=== PATIENT | male | born 1935 | race Caucasian/White ===

== ENCOUNTER 2019-10-05 19:01 | Inpatient (IN) ==
[2019-10-05] MEDS ORDERED: ACETAMINOPHEN 1,000 MG/100 ML VIAL IV STA (19:53)
--- NOTE | 2019-10-05 20:06 | Emergency Department Note ---
Impression & Plan Patellar fracture, Fall, Left knee pain ED Provider Note NAME: RJ MEEKS AGE: 84 SEX: M : 1935 ARRIVES VIA: Walk-In INFORMANT: [Patient][daughter] ED PROVIDER(S): [Joe Wang MD] CHIEF COMPLAINT: Left knee pain HISTORY OF PRESENT ILLNESS: The patient is an 84-year-old male who lives alone. He was walking some dogs when they ran and pulled him down. His left knee twisted. The patient can bear no weight on the left knee and states it appears deformed. He thinks his kneecap was out of position at one point but he put it back. There is no real discomfort in the ankle or the foot on the left but he states that these areas were twisted initially. As long as the patient is still, the knee is not that painful, if you palpate the knee or he tries to move the knee, the pain becomes more severe. There is no left hip pain. He denies loss of conscious, he denies head injury, neck injury, upper extremity injury, back injury, chest or abdomina l injury. He is not on any blood thinners. The patient has been in baseline health, he has had no cough, congestion or coronavirus exposures. He was feeling fairly well today until this fall occurr ed. He states that he fell about 3-1/2 or so hours ago. REVIEW OF SYSTEMS: See HPI for pertinent positives and negatives. A total of ten systems were reviewed and were otherwise negative. PMHx/PSHx: See Below SOCIAL HISTORY: See Below. PHYSICAL EXAM: GENERAL: Patient is in no acute distress. HEENT: No acute trauma, normocephalic atraumatic, mucous membranes moist, no nasal congestion, no scleral icterus. NECK: No stridor, no adenopathy, no meningismus, trachea is midline. LUNGS: Clear to auscultation bilaterally, no wheeze, no rhonchi, breath sounds equal. HEART: Without murmurs gallops or rubs, regular rate and rhythm. ABDOMEN: Soft, nontender, bowel sounds positive, no hernias, no peritonitis. EXTREMITIES: Patient has obvious swelling to the left knee. There is no ef fusion present. The patella is high riding and there appears to be a patellar tendon rupture. This entire left knee is painful to palpate. The patient cannot lift his left leg off the bed. There is some mild edema to the left lower extremity but no gross deformity at the ankle or foot. He does have a little bit of discomfort with movement of the left ankle. There is no evidence for neurovascular compromise in the left lower extremity. No evidence for upper extremity deformity. No pain to move the joints of the upper extremities. NEUROLOGIC: Oriented x 3, no acute motor or sensory deficits, no focal weakness. SKIN: No rash, no jaundice, no diaphoresis. DIFFERENTIAL DIAGNOSIS: Muscular strain, fracture, dislocation, patellar tendon rupture, quadriceps rupture, DVT, joint effusion, infection, soft tissue injury, vascular compromise, as well as other pathologies. EMERGENCY DEPARTMENT COURSE/PROCEDURES: MEDICAL DECISION MAKING: There is no leukocytosis or concerning anemia. There is a normal platelet count. No coagulopathy. No significant electrolyte abnormality or kidney failure. No evidence for hepatitis. Left tib-fib, left ankle, left foot and left knee films were done. The patient has a distracted left patellar fracture. I saw no other bony injuries. On my exam, there was no evidence for left lower extremity neurovascular compromise. There was no gross deformity to the left lower extremity. I could not find evidence for significant injury elsewhere from the fall. The patient did not really want anything too strong for pain. I did give some IV Tylenol to prevent any worsening discomfort. He was placed in a left knee immobilizer. Ice was applied I did speak with orthopedics. The patient will be hospitalized and likely have surgery tomorrow. I talked with the on-call hospitalist. Case management has been involved. The patient is aware of the findings. Past Med/Surg History Medical History No significant past medical history Social History Preferred Language: Occitan Communication Ability: Effective Beliefs That Will Affect Care: None Current Living Situation: Alone Other Information That Helps Us Care for You: No Feels Safe at Home: Yes Safety Concerns: Feels Safe At This Time Smoking Status: Former smoker Tobacco Type: cigars ; Cigarettes Per Day: 4 ; Smoking End Date: 9 years ago ; Hx Alcohol Use: No Hx Substance Use: No Allergies Allergies Allergy/AdvReac Type Severity Reaction Status Date / Time No Known Allergies Allergy Unverified 10/05/19 20:41 Home Meds Home Medications Medication Instructions Recorded Confirmed No Known Home Medications 10/05/19 10/05/19 Results & Data (ED) Vital Signs Vital Signs - 24 hr 10/05/19 19:03 10/05/19 20:30 Temperature 36.5 C Temperature Source Oral Pulse Rate 83 Pulse Rate [Finger] 75 Respiratory Rate 16 18 Respiratory Effort / Characteristics Non-Labored Spontaneous Non-Labored Spontaneous Respiratory Depth Normal Normal Respiratory Pattern Regular Regular Blood Pressure 175/71 H Blood Pressure [Left Arm] 168/80 H Blood Pressure Mean 105 Blood Pressure Mean [Left Arm] 109 Blood Pressure Position Sitting Blood Pressure Position [Left Arm] Lying Pulse Oximetry 99 98 Oxygen Delivery Method Room Air Room Air Sepsis Recent Fever Within 48 Hours No Sepsis New/Unexplained Change in Mental Status No Sepsis Action Taken by Nursing No Action Required Home Medications Current Medication List: was personally reviewed by me Laboratory Data Attestation: I reviewed the patient's lab results. Result diagrams: 10/05/19 20:05 10/05/19 20:05 Lab Results 10/05/19 10/05/19 10/05/19 Range/Units 20:05 20:05 20:05 WBC 8.60 (4.8-10.8) K/uL RBC 4.87 (4.7-6.1) M/uL Hgb 14.4 (14.0-18.0) g/dL Hct 42.9 (42-52) % MCV 88.1 (80-100) fL MCH 29.6 (25-34) pg MCHC 33.6 (32-36) g/dL RDW Std Deviation 43.9 (36.4-46.3) fL RDW Coeff of Sherry 13.7 (11.5-14.5) % Plt Count 295 (130-400) K/uL MPV 9.0 (7.4-10.4) fL PT 10.3 (9.0-12.0) Seconds INR 1.0 (0.9-1.1) APTT 23.7 (21.0-31.0) Seconds PTT Ratio 0.8 Sodium 137 (136-145) mmol/L Potassium 3.9 (3.5-5.1) mmol/L Chloride 104 (98-107) mmol/L Carbon Dioxide 28 (21-32) mmol/L Anion Gap 6.0 (3-11) BUN 18 (7-18) mg/dl Creatinine 1.17 (0.6-1.4) mg/dl Est Cr Clr Drug Dosing Not Reportable Est GFR ( Amer) 65.5 Est GFR (Non-Af Amer) 56.5 BUN/Creatinine Ratio 15.3 (10-20) Glucose 97 (70-99) mg/dl Calcium 9.3 (8.5-10.1) mg/dl Total Bilirubin 0.5 (0.2-1) mg/dl AST 27 (15-37) U/L ALT 29 (12-78) U/L Alkaline Phosphatase 117 (45-117) U/L Total Protein 7.4 (6.4-8.2) gm/dl Albumin 3.8 (3.4-5.0) gm/dl Globulin 3.6 (2.5-4.0) gm/dl Albumin/Globulin Ratio 1.1 (0.9-2) Administered Medications Discontinued Medications Acetaminophen (Ofirmev) 1,000 mg in 100 mls @ 400 mls/hr IV NOW STA Stop: 10/05/19 20:07 Last Infusion: 10/05/19 20:53 Dose: 0 mls/hr Documented by: [id number] Admin: 10/05/19 20:35 Dose: 400 mls/hr Documented by: [id number] Imaging Data Radiologist's Impression: XR ankle LT min 3V routine CLINICAL HISTORY: Left ankle pain status post trauma COMPARISON: None. DISCUSSION: No acute fractures or dislocations are visualized. IMPRESSION: No fractures or dislocations identified. R foot LT min 3V routine CLINICAL HISTORY: Left foot pain status post trauma COMPARISON: None. DISCUSSION: The metatarsal phalangeal joints or in extension. The bones are osteopenic. There is Achilles insertional spur and plantar calcaneal spur. No acute fractures or dislocations are visualized. IMPRESSION: No fractures identified. XR knee LT 3V CLINICAL HISTORY: Trauma. Left knee pain. COMPARISON: None. DISCUSSION: There is a transverse fracture through the mid patellar pole with 38 mm of fracture fragment distraction. There is prepatellar soft tissue edema. There is a bone island within the tibia. There are vascular calcifications. No additional fractures are visualized. IMPRESSION: Distracted patellar fracture. XR tibia fibula LT 2V CLINICAL HISTORY: Left lower leg pain status post trauma COMPARISON: None. DISCUSSION: There is a proximal tibial bone island. No acute fractures or dislocations are visualized. IMPRESSION: No fractures or dislocations identified. Blood Pressure Blood Pressure Findings: Elevated blood pressure Blood Pressure Disposition: further management by hospitalist Discharge Plan Visit Data *Final* Discharge Date/Time: 10/05/19 22:13 Chief Complaint: Leg Injury/Pain Stated Complaint: LEFT LEG INJURY ED Provider: Joe Wang Discharge Problem: Patellar fracture, Fall, Left knee pain Patient Disposition: Admitted As Inpatient Condition: Good Discharge Instructions Interventions: ED Discharge Assessment Last Done: 10/05/19 22:13 Discharge Problem: Patellar fracture Qualifiers: Encounter type: initial encounter Fracture type: closed Fracture morphology: transverse Fracture alignment: displaced Laterality: left Qualified Code(s): S82.032A - Displaced transverse fracture of left patella, initial encounter for closed fracture Fall Qualifiers: Encounter type: initial encounter Qualified Code(s): W19.XXXA - Unspecified fall, initial encounter Left knee pain Qualifiers: Chronicity: acute Qualified Code(s): M25.562 - Pain in left knee
[2019-10-05 20:35] LABS: Partial Thromboplastin Ratio 0.8; Partial Thromboplastin Time 23.7 Seconds (21.0-31.0); Prothrombin Time 10.3 Seconds (9.0-12.0)
--- NOTE | 2019-10-05 20:39 | XRay Report ---
XR knee LT 3V CLINICAL HISTORY: Trauma. Left knee pain. COMPARISON: None. DISCUSSION: There is a transverse fracture through the mid patellar pole with 38 mm of fracture fragm ent distraction. There is prepatellar soft tissue edema. There is a bone island within the tibia. The re are vascular calcifications. No additional fractures are visualized. IMPRESSION: Distracted patellar fracture. ACT 112: Negative or not required by law. Electronically signed by: Dom Euceda M.D. 10/05/2019 8:38 PM
--- NOTE | 2019-10-05 20:39 | XRay Report ---
XR tibia fibula LT 2V CLINICAL HISTORY: Left lower leg pain status post trauma COMPARISON: None. DISCUSSION: There is a proximal tibial bone island. No acute fractures or dislocations are visualized . IMPRESSION: No fractures or dislocations identified. ACT 112: Negative or not required by law. Electronically signed by: Dom Euceda M.D. 10/05/2019 8:38 PM
[2019-10-05 20:40] LABS: Hematocrit (blood only) 42.9 % (42-52); Hemoglobin 14.4 g/dL (14.0-18.0); Mean Corpuscular Hemoglobin 29.6 pg (25-34); Mean Corpuscular Hgb Conc 33.6 g/dL (32-36); Mean Corpuscular Volume 88.1 fL (80-100); Platelet Count 295 K/uL (130-400); RDW Coefficient of Variation 13.7 % (11.5-14.5); RDW Standard Deviation 43.9 fL (36.4-46.3); Red Blood Count 4.87 M/uL (4.7-6.1)
--- NOTE | 2019-10-05 20:40 | XRay Report ---
XR ankle LT min 3V routine CLINICAL HISTORY: Left ankle pain status post trauma COMPARISON: None. DISCUSSION: No acute fractures or dislocations are visualized. IMPRESSION: No fractures or dislocations identified. ACT 112: Negative or not required by law. Electronically signed by: Dom Euceda M.D. 10/05/2019 8:39 PM
--- NOTE | 2019-10-05 20:41 | XRay Report ---
XR foot LT min 3V routine CLINICAL HISTORY: Left foot pain status post trauma COMPARISON: None. DISCUSSION: The metatarsal phalangeal joints or in extension. The bones are osteopenic. There is Achi lles insertional spur and plantar calcaneal spur. No acute fractures or dislocations are visualized. IMPRESSION: No fractures identified. ACT 112: Negative or not required by law. Electronically signed by: Dom Euceda M.D. 10/05/2019 8:40 PM
[2019-10-05 20:42] LABS: Alanine Aminotransferase 29 U/L (12-78); Albumin Level 3.8 gm/dl (3.4-5.0); Aspartate Aminotransferase 27 U/L (15-37); BUN Creatinine Ratio 15.3 (10-20); Blood Urea Nitrogen 18 mg/dl (7-18); Calcium 9.3 mg/dl (8.5-10.1); Carbon Dioxide 28 mmol/L (21-32); Chloride 104 mmol/L (98-107); Est GFR (African American) 65.5; Est GFR (Non-African American) 56.5; Glucose 97 mg/dl (70-99); Potassium 3.9 mmol/L (3.5-5.1); Sodium 137 mmol/L (136-145)
[2019-10-05 20:45] LABS: Albumin Globulin Ratio 1.1 (0.9-2); Alkaline Phosphatase 117 U/L (45-117); Bilirubin,Total 0.5 mg/dl (0.2-1); Globulin 3.6 gm/dl (2.5-4.0); Total Protein 7.4 gm/dl (6.4-8.2)
--- NOTE | 2019-10-05 22:02 | History & Physical Report ---
Date of Service October 05, 2019 Assessment & Plan (1) Closed fracture of left patella: Clifford is an 84-year-old male with no past medical history who presents for evaluation of left knee pain with evaluation consistent with a left patellar fracture. L Patellar fracture with 38mm distraction - L Knee XR: There is a transverse fracture through the mid patellar pole with 38 mm of fracture fragment distraction. There is prepatellar soft tissue edema. There is a bone island within the tibia. There are vascular calcifications. No additional fractures are visualized. - L Ankle, foot, tib-fib XR: naf -Neurovascularly intact. PT/DP pulses intact and symmetrical. Sensation to soft touch intact, able to wiggle toes. No pain in left calf. -Orthopedic surgery consulted, case discussed with Dr. Aguilar by emergency provider. Anticipate operative repair tomorrow morning N.p.o. Patient in no pain at rest, Tylenol as needed for pain control RCRI 0 points, class I surgical risk. Recommend proceeding with surgery. EKG baseline and CXR ordered. Creatinine normal on admission. Patient with family history of early cardiac disease and 1 son, but no personal history of cardiac illness. Given traumatic displacement and concern for knee dislocation with self reduction, left neurovascular lower limb checks every 4 hours overnight Diet: N.p.o. DVT prophylaxis: SCDs on right lower extremity CODE STATUS: Full code, discussed with patient Disposition: Admit to medical/surgical History of Present Illness . Chief Complaint: Left knee pain Primary Care Provider: NO PCP Clifford is an 84-year-old male with no past medical history who presents for evaluation of left knee pain. Clifford was out walking his 2 dogs when 1 dog ran behind him and the other dog ran in front of him to kanwal a cat causing him to fall and strike his left knee on pavement. After striking his knee the dog is continued to run sideways which causes him to twist his knee sideways. He reports that he felt a crack and immediate sharp pain. He was unable to extend his leg, and noticed that his kneecap was displaced superiomedially and that his lower leg bone was stretched out to the side appearing dislocated. He was able to self reduce his knee and pull his kneecap back into place, but afterwards was unable to extend his leg and noticed that it just "was floppy ". His injury occurred at approximately 430 to 5:00 PM on 10/04/2019. Since his injury he has noticed some cramping and tension in his left thigh. He has not had any numbness or tingling stretching down into his lower leg or ankle. He does not have pain anywhere except his left knee. He reports he has good exercise tolerance and walks his dog regularly, has never had a problem with chest pain/chest pressure/palpitations/leg swelling, shortness of breath, difficulty breathing, headache, syncope, presyncope, or sudden weakness He denies any past medical history. He does not see a PCP. Medications: Does not take any medications Surgical history: Distant left hernia repair Allergies: No known drug allergies Family history: Reports a family history of stroke in his oldest son, and his youngest son at age 49 from COPD and heart failure. Social: Denies alcohol use. No tobacco use in 8 years, sporadic use prior to that. Denies recreational drug use. He lives alone with his daughter Rebecca living approximately 10 miles away who would be his contact and decision maker if you are unable to make decisions for himself. CODE STATUS: Full code Allergies Allergy/AdvReac Type Severity Reaction Status Date / Time No Known Allergies Allergy Unverified 10/05/19 20:41 Home Medications Home Medications Medication Instructions Recorded Confirmed Type No Known Home Medications 10/05/19 10/05/19 History Past Med/Surg History Medical History No significant past medical history Social History Preferred Language: Mauritian Feels Safe at Home: Yes Smoking Status: Former smoker Review of Systems Review of Systems: Constitutional: Denies fever, chills, malaise, weight change Eyes: Denies double vision, vision change, eye pain ENT: Denies ear pain, sore throat, sinus pain Cardiovascular: Denies Chest pain, chest pressure, palpitations, extremity swelling Respiratory: Denies shortness of breath, cough, sputum production, difficulty breathing Gastrointestinal: Denies abdominal pain, nausea, vomiting, constipation, diarrhea Genitourinary: Denies pain with urination, urinary urgency, urinary frequeny MSK: See HPI Integumentary:Denies rash, lesions, bruising Neurological: Denies headache, numbness, tingling, focal weakness Physical Exam Physical Exam: General: A&Ox3. NAD. Cooperative. HEENT: Atraumatic, normocephalic. Visual campbell full to confrontation. Pupils equal and react to light and accommodation. Visual acuity grossly intact. Hearing grossly intact. No facial asymmetry. Phonation normal without dysarthria. Tongue protrudes midline. Pulm: CTAB A&P. -wheezes, -rales, -rhonchi. Symmetrical chest rise. No increase work of breathing. No respiratory distress. Cardiac: RRR, -mrg. Radial pulses intact and symmetrical. Abdominal: Nontender, nondistended, soft. BS present. Extremity: Right lower extremity atraumatic, without swelling or pitting edema. Left lower extremity: Soft knee brace with ice pack present on left knee. Knee diffusely swollen with increased tone of left quad compared to right. Range of motion ligament testing, and knee strength testing not performed due to acute patellar fracture. PT and DP pulse intact to palpation and symmetrical with right lower extremity. Patient able to wiggle toes. Sensation in toes to soft touch intact and symmetrical with right lower extremity. Sensory: Light touch, pinprick intact in upper and lower extremities without deficit or asymmetry. Strength: RUE: Elbow flexion/extension, finger flexion/extension, floor installer strength, interosseous 5/5 LUE: Elbow flexion/extension, finger flexion/extension, floor installer strength, interosseous 5/5 RLE: Hip flexion, knee flexion/extension, ankle plantar flexion/dorsiflexion 5/5 LLE: Ankle plantar flexion/dorsiflexion 5/5 Results & Data Results & Data ([facility]) Vital Signs (Past 12 Hours) Vital Signs Temp Pulse Pulse Resp BP BP Pulse Ox 10/05/19 20:30 75 18 168/80 H 98 10/05/19 19:03 36.5 C 83 16 175/71 H 99 Code Status & VTE Plan VTE Prophylaxis Plan VTE Prophylaxis will be ordered: Yes Supervising Physician Co-Signing Physician Notes Patient seen and examined, chart reviewed, case discussed with Dr. De La Rosa and I agree with his assessment and plan as documented above. Briefly, patient is an 84yo C male presenting with left transverse patellar fracture after a trauma. Patient presently doing well, pain only with movement On exam he is afebrile, HD stable, NAD Skin - intact, small abrasion on left hand HEENT - NC/AT, PERRL, EOMI, MMM Heart - +S1/S2, regular, no m/r/g Lungs - CTA Abd - +BS, soft, NT/ND Ext - LLE in soft immobilizer, sensation intact, DP/PT pulses 2+ Labs and images reviewed Assessment/Plan- 84yo C male with closed patellar fracture on left, 38mm distraction. Pain well controlled. NV intact. Patient for surgery tomorrow. Low risk patient per RCRI criteria, n oknown cardiac or pulmonary diseases, he d enies CP/exertional dyspnea, able to complete 4METS without difficulty. -Will obtain CXR and EKG -Patient may proceed to surgery -Remainder of plan as above Resident Activity Tracking Resident Involvement: Resident Care Provided Care Provided: Adult [facility] Medicine
[2019-10-05] MEDS ORDERED: ACETAMINOPHEN 325 MG TAB PO PRN (22:34)
--- NOTE | 2019-10-05 22:50 | Billing Data ---
Date of Service October 05, 2019 Coding Level of Care Code 04750 Initial Inpt Care Lvl 2
--- NOTE | 2019-10-06 07:12 | XRay Report ---
SINGLE VIEW CHEST CLINICAL HISTORY: Preoperative examination. FINDINGS: 2 AP, portable, upright chest radiographs are obtained. No prior studies are available for comparison at the time of dictation. The examination is degraded by portable technique and patient ro tation. The heart is top normal for projection. The mediastinal contour is within normal limits. Sca rring/atelectasis is noted at the lung bases. A calcified granuloma seen at the right lung base. No a irspace consolidation or large pleural effusion is identified. No pneumothorax is seen. The skeletal structures are osteopenic. The bony thorax is grossly intact. Degenerative change is noted in the greg ulders and thoracic spine. IMPRESSION: No acute cardiopulmonary abnormality. ACT 112: Negative or not required by law. Electronically signed by: Joe Mcdermott M.D. 10/06/2019 7:11 AM
--- NOTE | 2019-10-06 12:37 | Electrocardiogram Report ---
Test Reason : Blood Pressure : / mmHG Vent. Rate : 052 BPM Atrial Rate : 052 BPM P-R Int : 184 ms QRS Dur : 072 ms QT Int : 464 ms P-R-T Axes : 067 049 081 degrees QTc Int : 431 ms Sinus bradycardia Otherwise normal ECG No previous ECGs available Confirmed by Philippe Rocha ([id number]) on 10/06/2019 12:37:00 PM Referred By: REFERRED SELF Confirmed By:Philippe Rocha
--- NOTE | 2019-10-06 12:39 | Orthopedic Consultation ---
Date of Consultation October 06, 2019 Assessment & Plan (1) Closed fracture of left patella: He was educated on this injury I talked about treatment for this. We recommend taking him to the operating room today for a partial patellectomy and extensor mechanism repair. The procedure was explained including the risks benefits alternatives to surgery. He would like to proceed with this today. Consent was obtained. He is n.p.o. since yesterday. In the meantime we will continue use of knee immobilizer to his left leg. Present on Admission?: Yes History of Present Illness Reason for Consultation: Left patella fracture Attending Physician: Chevy León History of Present Illness 84-year-old male who we were consulted for regarding a left patella fracture. He states that he was walking his neighbors dogs yesterday evening when they ran after a squirrel causing the fall and he injured his knee. He was unable to get up at that point. He states that his foot was sort of rotated the side when he was able to move this and pop his knee back in. He had immediate knee pain with this fall. No prior knee problems or knee surgeries in the past. X-rays were obtained at [facility] which showed a displaced patella fracture he is admitted to the hospitalist service. Denies any other injuries. Prior to this fall he ambulated independently. Allergies Allergy/AdvReac Type Severity Reaction Status Date / Time No Known Allergies Allergy Unverified 10/05/19 20:41 Home Medications Home Medications Medication Instructions Recorded Confirmed Type No Known Home Medications 10/05/19 10/05/19 History Patient History Medical History No significant past medical history Social History Preferred Language: Palauan Communication Ability: Effective Beliefs That Will Affect Care: None Current Living Situation: Alone Other Information That Helps Us Care for You: No Feels Safe at Home: Yes Safety Concerns: Feels Safe At This Time Smoking Status: Former smoker Tobacco Type: cigars ; Cigarettes Per Day: 4 ; Smoking End Date: 9 years ago ; Hx Alcohol Use: No Hx Substance Use: No Review of Systems Review of Systems: All systems reviewed & are unremarkable except as noted in HPI & below Physical Exam Physical Exam: Well-developed well-nourished male in no distress. He is alert and oriented. On exam of his left leg today, skin is warm dry and intact. He does have significant swelling around his left knee. He is tender palpation around the anterior aspect over the patella. He is unable to do a straight leg raise. He is able to dorsiflex and plantarflex his ankle appropriately. He moves his toes appropriately. He has palpable distal pulses in his left leg. Brisk refill. Sensations intact to touch. Results & Data ([facility]) Vital Signs (Past 12 Hours) Vital Signs Temp Pulse Resp BP Pulse Ox 10/06/19 07:35 36.6 C 62 18 174/77 H 100 Diagnostic Findings X-rays were reviewed which show a displaced left patella fracture PG Care Time/CCT Total # of Minutes Spent Total Time Spent with Patient: Total time spent is greater than 50% in coordination of care (as documented) at patient's floor/unit and/or counseling patient: Coding Level of Care Code 63748 Initial Inpt Care Lvl 3 Diagnoses Closed fracture of left patella S82.002A
[2019-10-06] MEDS ORDERED: CEFAZOLIN 2000MG 2,000 MG/15 ML SYR IV ONE (14:33)
[2019-10-06] MEDS ORDERED: CEFAZOLIN 2,000 MG/15 ML IV PUSH IV ONE (14:35)
[2019-10-06] MEDS ORDERED: MIDAZOLAM HCL 1 MG/ML 2ML VIAL ONE (14:53)
[2019-10-06] MEDS ORDERED: HYDROmorphone INJ 2 MG/ML SYR/VIAL IV PRN (15:09)
[2019-10-06] MEDS ORDERED: ePHEDrine sulfate 50 MG/ML AMP IV PRN (15:09)
[2019-10-06] MEDS ORDERED: fentaNYL citrate 100 MCG/2 ML VIAL IV PRN (15:09)
[2019-10-06] MEDS ORDERED: ATROPINE SULFATE 0.1 MG/ML 10ML SYR IV PRN (15:09)
--- NOTE | 2019-10-06 15:09 | Anesthesiology Consultation ---
Date of Service October 06, 2019 Assessment & Plan ASA ASA3 Proposed Anesthesia Anesthesia Type: MAC Spinal Risk / Benefits Reviewed With: PT / POA / Parent / Guardian, Accepts Plan and Informed Consent Obtained History Surgery Operation Date: 10/06/19 14:00 Proposed Procedures p Left Patellectomy with Extensor Mechanism Repair - Kailash Aguilar MD Height/Weight Height: 5 ft 8 in Weight: 77 kg Allergies Allergy/AdvReac Type Severity Reaction Status Date / Time No Known Allergies Allergy Unverified 10/05/19 20:41 Medications Home Medications Medication Instructions Recorded Confirmed Last Taken No Known Home Medications 10/05/19 10/05/19 Unknown NPO Date Last Intake of Fluids: 10/05/19 Time Last Intake of Fluids: 15:00 Date Last Intake of Solids: 10/05/19 Time Last Intake of Solids: 12:00 Past Medical History Medical History No significant past medical history Exercise / Class Metabolic Activity II 4-5 Yardwork/Stairs/Walk up hill Past Anesthesia History No Hx of Anesthesia Complications and No Family Hx of Anesthesia Complications History of PONV No Hx of PONV and No Hx of Motion Sickness Social History Smoking Status: Former smoker tobacco type: cigars Smoking cigarettes per day: 4 Smoking End Date: 9 years ago Hx Alcohol Use: No Hx Substance Use: No Review of Systems denies fever/cough/ colds/ chest pain/ SOB/ BENITA Constitutional: no fever and no chills Respiratory: no cough and no dyspnea denies BENITA Cardiovascular: no chest pain and no dyspnea on exertion Physical Exam Vital Signs Last Vital Signs Temp 36.8 C 10/06/19 14:22 Pulse 77 10/06/19 14:22 Resp 20 10/06/19 14:22 BP 174/96 H 10/06/19 14:22 Pulse Ox 98 10/06/19 14:22 ENMT Mouth: + poor dentition (several missing teeth); no TMJ abnormality and no dentition abnormality Thyromental Distance: > or= 3.5 Finger Breadths Mallampati Class: II Neck neck extension not limited Respiratory normal respiratory effort; no respiratory distress Auscultation: lungs clear to auscultation bilaterally Cardiovascular Rate/Rhythm: regular rate and regular rhythm Neurologic moves all extremities Psychiatric Orientation: alert and oriented x 3 Testing Laboratory Results 10/05/19 20:05 06/01/20 20:05 PT 10.3 Seconds (9.0-12.0) 10/05/19 20:05 INR 1.0 (0.9-1.1) 10/05/19 20:05 APTT 23.7 Seconds (21.0-31.0) 10/05/19 20:05
[2019-10-06] MEDS ORDERED: BUPIVACAINE 0.5 % 5 MG/1 ML PF 10ML VIAL ONE (15:11)
[2019-10-06] MEDS ORDERED: EPINEPHrine INJ 1 MG/ML AMP ONE (15:12)
[2019-10-06] MEDS ORDERED: BACITRACIN INJ 50,000 UNIT VIAL ONE (15:13)
[2019-10-06] MEDS ORDERED: BUPIVACAINE 0.5 % 5 MG/1 ML MPF 30ML VIAL ONE (15:13)
[2019-10-06] MEDS ORDERED: PROPOFOL IV EMULSION 10 MG/ML 20 ML VIAL IV ONE (15:48)
[2019-10-06] MEDS ORDERED: fentaNYL citrate 100 MCG/2 ML VIAL ONE (15:55)
--- NOTE | 2019-10-06 17:07 | Operative Report ---
Post Operative Report Pre & Post Diagnosis Operation Date: 10/06/19 14:00 Pre-Op Diagnosis: Closed comminuted displaced fracture of left patella Post-Op Diagnosis: Closed comminuted displaced fracture of left patella I identified the patient and participated in the time-out.: Yes Procedure Operation Date: 10/06/19 14:00 Actual Procedures p Left Partial Patellectomy with Extensor Mechanism Repair(Left) - Kailash Aguilar MD Surgeon Kailash Aguilar MD Photoradio Operator Paola, TRACY Estimated Blood Loss 10 Findings Consistent with Post-Op Diagnosis Fluids 1000 cc. Specimens None. Drains None. Anesthesia Type Spinal MAC Complications none Disposition Accompanied Patient To Recovery: No Disposition: Recovery Room Indications Patient is an 84-year-old very healthy independent gentleman who sustained a fall last evening. He was apparently walking his neighbors dogs when they went to [place] another animal when he got tripped up and fell on his left knee. Acute onset of pain and deformity. He was seen in the emergency room x-rays revealed a displaced comminuted patella fracture. Patient admitted to the medicine service, medically optimized, and indicated for surgical repair. The inferior pole fragment was significantly comminuted and unable to perform bony fixation. Description of Procedure Patient was taken to the operating room identified and placed on the operating table supine position protectors were properly padded. The patient had a spinal anesthetic implemented in the holding area. IV antibiotics were provided by anesthesia team. A Griffin catheter was placed in sterile fashion. A left thigh turn was then placed in the left lower extremity was then scrubbed with Hibiclens and then prepped with ChloraPrep and draped in usual sterile fashion. The left leg was elevated and exsanguinated with use of an Esmarch and turns placed at 300 mmHg. An anterior approach to the left knee was then performed to longitudinal incision centered over the patella and extending just medial to the patella tendon. Sharp dissection was gone through subcutaneous tissue down the extensor mechanism. Full-thickness flap was elevated medially and laterally to expose the retinacular tears. I then irrigated the wound and removed all blood clot from the patella. There was quite a bit of hemorrhage. I then skeletonized the inferior pole patella fragments which were multiple and excise them from the patella tendon take great care to protect of the patella tendon length. I then drilled 3 holes from the inferior pole patella to the superior pole and passed some passing sutures through this for later passing of the patella tendon repair sutures. I placed two #5 sutures and the patella tendon itself. I placed a #5 Ethibond suture using a Krakw stitch on the medial side and a #5 Tycron suture using a Krakw stitch technique on the lateral side. The sutures were then fed through the passing sutures and through the drill holes in the inferior pole patella to the upper part of the patella. I then irrigated the wound extensively. The s utures were then tied tight with the knee in about 30 degrees of flexion pulling the patella down to the patella tendon. The sutures were tied. The medial and lateral retinacular tears were then repaired with #1 Vicryl suture in a [id number] fashion. I irrigated the wound extensively. I injected locally with 30 cc of half percent Marcaine with epinephrine. The check was then let down for turn time 35 minutes. Hemostasis assured use electrocautery. The wound was once again irrigated. Subcutaneous tissue was then closed with 2 Dexon suture in a buried interrupted fashion skin was closed with 3-0 nylon suture in a horizontal mattress fashion. The knee was then cleaned and dried a sterile dressing composed of Xeroform, 4 x 4's, sterile cast padding and a knee immobilizer were applied. The patient then transferred to the recovery room in stable condition. Patient tolerated procedure well no complications I attest to the content of the Intraoperative Record and any orders documented therein. Any exceptions are noted below.
--- NOTE | 2019-10-06 17:39 | Anesthesiology Progress Note ---
Date of Service October 06, 2019 Anesthesia Post Procedure Vital Signs Vital Signs: Temp Pulse Pulse Pulse Resp BP BP 10/06/19 17:35 62 24 160/76 H 10/06/19 17:25 74 18 138/72 10/06/19 17:15 73 24 131/65 10/06/19 17:05 36.0 C L 70 15 130/57 L 10/06/19 14:22 36.8 C 77 20 10/06/19 07:35 36.6 C 62 18 10/05/19 22:45 37.2 C 70 16 197/80 H 10/05/19 21:58 64 18 154/88 H 10/05/19 20:30 75 18 168/80 H 10/05/19 19:03 36.5 C 83 16 175/71 H BP Pulse Ox 10/06/19 17:35 100 10/06/19 17:25 98 10/06/19 17:15 99 10/06/19 17:05 97 10/06/19 14:22 174/96 H 98 10/06/19 07:35 174/77 H 100 10/05/19 22:45 99 10/05/19 21:58 98 10/05/19 20:30 98 10/05/19 19:03 99 Pain Intensity Left Knee: Pain Intensity: 0 Transfer of Care Handoff Completed per policy Notes Mental Status: alert / awake / arousable and participated in evaluation Patient Amnestic to Procedure: Yes Nausea / Vomiting: adequately controlled Pain: adequately controlled Airway Patency, RR, SpO2: stable & adequate BP & HR: stable & adequate Hydration State: stable & adequate Anesthetic Complications: no major complications apparent and Pt Satisfied with anesthetic care
[2019-10-06] MEDS ORDERED: ONDANSETRON INJ 2 MG/ML 2 ML VIAL IV PRN (18:55)
[2019-10-06] MEDS ORDERED: METOCLOPRAMIDE HCL INJ 5 MG/ML 2 ML VIAL IV PRN (18:55)
[2019-10-06] MEDS ORDERED: TRAMADOL HCL 50 MG TABLET PO PRN (18:55)
[2019-10-06] MEDS ORDERED: bisacodyL 10 MG SUPP PR PRN (18:55)
[2019-10-06] MEDS ORDERED: MAGNESIUM HYDROXIDE SUSP 30 ML UDC PO PRN (18:55)
[2019-10-06] MEDS ORDERED: TAMSULOSIN HCL 0.4 MG CAP PO PRN (18:55)
[2019-10-06] MEDS ORDERED: ALUMINUM/MAGNESIUM SUSP 30 ML UDC PO PRN (18:55)
[2019-10-06] MEDS ORDERED: HYDROmorphone INJ 0.5 MG/0.5 ML SYR IV PRN (18:55)
[2019-10-06] MEDS ORDERED: NALOXONE HCL 0.4 MG/1 ML VIAL/CARP IV PRN (18:55)
[2019-10-06] MEDS: SODIUM CHLORIDE 0.9% 1000ML 1,000 ML IV SCH (20:36)
[2019-10-06] MEDS: ACETAMINOPHEN 500 MG TAB PO SCH (20:38)
[2019-10-06] MEDS: DOCUSATE SODIUM 100 MG CAP PO SCH (20:38)
[2019-10-06] MEDS: ASPIRIN 81 MG ECTAB PO SCH (20:38)
[2019-10-06] MEDS: SENNA 8.6 MG TAB PO SCH (20:38)
[2019-10-06] MEDS: KETOROLAC TROMETHAMINE 15 MG/ML VIAL IV SCH (20:39)
--- NOTE | 2019-10-06 22:36 | Hospitalist Progress Note ---
Date of Service October 06, 2019 Assessment & Plan (1) Closed fracture of left patella: Clifford is an 84-year-old male with no past medical history who presents for evaluation of left knee pain with evaluation consistent with a left patellar fracture. L Patellar fracture with 38mm distraction S/P repair. - L Knee XR: There was a transverse fracture through the mid patellar pole with 38 mm of fracture fragment distraction. There is prepatellar soft tissue edema. There is a bone island within the tibia. There are vascular calcifications. No additional fractures are visualized. - L Ankle, foot, tib-fib XR: naf -Neurovascularly intact. PT/DP pulses intact and symmetrical. Sensation to soft touch intact, able to wiggle toes. No pain in left calf. -Orthopedic surgery consulted, case discussed with Dr. Aguilar by emergency provider. -Patient had surgical repair today. will closely monitor patient overnight. Diet: N.p.o. DVT prophylaxis: SCDs on right lower extremity CODE STATUS: Full code, discussed with patient Disposition: Admit to medical/surgical Admission and Anticipated Discharge Date Admission Date: October 05, 2019 Subjective Patient seen after surgery. Patient has no complaints. He reports feeling drowsy. Review of Systems Review of Systems: All systems reviewed & are unremarkable except as noted in HPI & below Physical Exam Physical Exam: General: NAD. Cooperative. HEENT: Atraumatic, normocephalic. Visual campbell full to confrontation. Pulm: CTAB A&P. Cardiac: RRR, -mrg. Radial pulses intact and symmetrical. Abdominal: Nontender, nondistended, soft. BS present. Extremity: Right lower extremity atraumatic, without swelling or pitting edema. Left lower extremity: left knee in brace. Results & Data Results & Data ([facility]) Vital Signs (Past 12 Hours) Vital Signs Temp Pulse Pulse Resp BP BP Pulse Ox 10/06/19 21:54 66 18 166/70 H 97 10/06/19 20:54 36.9 C 79 18 160/69 H 98 10/06/19 19:55 36.9 C 78 16 160/67 H 98 10/06/19 19:33 36.9 C 71 16 176/69 H 95 10/06/19 18:55 36.4 C L 72 16 145/78 H 96 10/06/19 18:40 36.6 C 68 20 156/58 H 99 10/06/19 18:25 72 16 169/80 H 98 10/06/19 18:15 57 L 15 161/70 H 99 10/06/19 18:05 64 19 137/70 94 10/06/19 17:55 69 23 145/75 H 98 10/06/19 17:45 56 L 12 142/98 H 98 10/06/19 17:35 62 24 160/76 H 100 10/06/19 17:25 74 18 138/72 98 10/06/19 17:15 73 24 131/65 99 10/06/19 17:05 36.0 C L 70 15 130/57 L 97 10/06/19 14:22 36.8 C 77 20 174/96 H 98 PG Care Time/CCT Total # of Minutes Spent Total Time Spent with Patient: Total time spent is greater than 50% in coordination of care (as documented) at patient's floor/unit and/or counseling patient: Coding Level of Care Code 47617 Subseq Hosp Care Lvl 2 Diagnoses Closed fracture of left patella S82.002A Time Spent (min) 25
[2019-10-07] MEDS: CEFAZOLIN 2000MG 2,000 MG/15 ML SYR IV SCH ×2 (00:32→10:06)
[2019-10-07] MEDS: KETOROLAC TROMETHAMINE 15 MG/ML VIAL IV SCH ×4 (01:35→22:02)
[2019-10-07] MEDS ORDERED: METOPROLOL TARTRATE 25 MG TAB PO ONE ×2 (01:37→23:46)
[2019-10-07] MEDS ORDERED: HydrALAZINE HCL 20 MG/ML VIAL IV ONE ×2 (01:38→04:27)
[2019-10-07] MEDS ORDERED: HydrALAZINE HCL 20 MG/ML VIAL IV STA (02:28)
[2019-10-07] MEDS: SODIUM CHLORIDE 0.9% 1000ML 1,000 ML IV SCH (05:26)
[2019-10-07] MEDS: ACETAMINOPHEN 500 MG TAB PO SCH ×3 (06:22→22:01)
--- NOTE | 2019-10-07 06:37 | Communication Note ---
Date of Service: October 07, 2019 Pt hypertension overnight following surgery. Pt given 1x dose of metoprolol, then reassessed. Continued to be hypertensive and became acutely confused. FILEMON AA, strength intact, pt able to follow commands, sensation intact, and strength in distal extremities intact. Pt inititally oriented to date and place, but became increasingly confused during exam. CT-H ordered, naf. Hydralazine given, pt reassessed for pain and to be followed with recheck bp in 1 hr
--- NOTE | 2019-10-07 06:53 | CT Scan Report ---
CT head/brain wo con CLINICAL HISTORY: Acute change in mental status COMPARISON STUDY: No previous studies for comparison. TECHNIQUE: Axial CT of the brain is performed from the vertex to the skull base. IV contrast was not administered for this examination. A dose lowering technique was utilized adhering to the principles of ALARA. CT DOSE: 687.98 mGy.cm FINDINGS: No intra or extra-axial mass lesions are visualized. There is no CT evidence of acute cortical infarc tion. There is no evidence of midline shift. There is no acute hemorrhage. No calvarial fractures ar e visualized. There are patchy white matter hypodensities likely on a small vessel basis. There is no evidence of pathologic ventricular dilatation. There is no evidence of acute sinusitis IMPRESSION: No acute intracranial findings ACT 112: Negative or not required by law. Electronically signed by: Dom Euceda M.D. 10/07/2019 6:52 AM
[2019-10-07] MEDS: MULTIVITAMIN TAB PO SCH (10:07)
[2019-10-07] MEDS: DOCUSATE SODIUM 100 MG CAP PO SCH ×2 (10:07→22:07)
[2019-10-07] MEDS: ASPIRIN 81 MG ECTAB PO SCH ×2 (10:07→22:01)
--- NOTE | 2019-10-07 12:17 | Progress Notes ---
DATE: 10/07/2019 SUBJECTIVE: An 84-year-old gentleman postop day 1 from left partial patellectomy and extensor mechanism repair. He is doing well painwise. He is really anxious and wants to go home. No other complaints. OBJECTIVE: VITAL SIGNS: Temperature 36.9. Vital signs stable. GENERAL: Shows a pleasant elderly male. He is sitting up at his bedside chair, looks pretty comfortable. EXTREMITIES: Examination of the left leg reveals a knee immobilizer in place. Dressing is clean, dry, and intact. He can dorsiflex and plantarflex his foot appropriately. He is neurologically intact. ASSESSMENT: An 84-year-old gentleman postoperative day 1 from left knee partial patellectomy and extensor mechanism repair. The pain seems to be controlled. He is a bit confused today. PLAN: 1. DVT prophylaxis including thigh-high TEDs, SCDs, and we would recommend a baby aspirin twice a day for the next 6 weeks. 2. PT/OT. He can weightbear as tolerated in the knee immobilizer. Should have the knee immobilizer on most all times. He needs to sleep with it. He should have it on for all weightbearing activities. We do not want to do any knee bending at all at this point. 3. Medical management as per the medicine service. 4. Disposition: He is orthopedically okay for discharge at any time medically acceptable. He will likely need a rehab stay. I need to see him back somewhere between 2-3 weeks from his surgery date. Any orthopedic questions can be directed to me at [phone].
[2019-10-07] MEDS ORDERED: QUETIAPINE FUMARATE 25 MG TABLET PO STA (17:43)
[2019-10-07] MEDS: SENNA 8.6 MG TAB PO SCH (22:03)
--- NOTE | 2019-10-07 22:53 | Hospitalist Progress Note ---
Date of Service October 07, 2019 Assessment & Plan (1) Closed fracture of left patella: Clifford is an 84-year-old male with no past medical history who presents for evaluation of left knee pain with evaluation consistent with a left patellar fracture. L Patellar fracture with 38mm distraction S/P repair. - L Knee XR: There was a transverse fracture through the mid patellar pole with 38 mm of fracture fragment distraction. There is prepatellar soft tissue edema. There is a bone island within the tibia. There are vascular calcifications. No additional fractures are visualized. - L Ankle, foot, tib-fib XR: naf -Neurovascularly intact. PT/DP pulses intact and symmetrical. Sensation to soft touch intact, able to wiggle toes. No pain in left calf. -Orthopedic surgery consulted, case discussed with Dr. Aguilar by emergency provider. -Patient had surgical repair yesterday will closely monitor patient overnight -will followup with recommendations as per ortho. DVT prophylaxis: SCDs on right lower extremity CODE STATUS: Full code, discussed with patient Disposition: Admit to medical/surgical (2) Acute metabolic encephalopathy: Likely secondary to anesthesia. Patient also recieved ativan. will continue to monitor. Patient will receive 25 mg of seroquel today. Admission and Anticipated Discharge Date Admission Date: October 05, 2019 Subjective 84 yo male is very confused today. He does not recall why he is in the hospital. He states his knee fracture is old from years ago and does not understand why he is in the hospital. Patient was seen again later as patient was more confused. Oredered seroquel. Review of Systems Review of Systems: All systems reviewed & are unremarkable except as noted in HPI & below Physical Exam Physical Exam: General: NAD. uncooperative. HEENT: Atraumatic, normocephalic. Visual campbell full to confrontation. Pulm: CTAB A&P. Cardiac: RRR, -mrg. Radial pulses intact and symmetrical. Abdominal: Nontender, nondistended, soft. BS present. Extremity: Right lower extremity atraumatic, without swelling or pitting edema. Left lower extremity: left knee in brace. neuro: AAOX1. Results & Data Results & Data ([facility]) Vital Signs (Past 12 Hours) Vital Signs Temp Pulse Resp BP BP Pulse Ox 10/07/19 16:29 171/73 H 10/07/19 15:11 36.8 C 83 18 161/78 H 98 PG Care Time/CCT Total # of Minutes Spent Total Time Spent with Patient: Total time spent is greater than 50% in coordination of care (as documented) at patient's floor/unit and/or counseling patient: Coding Level of Care Code 67367 Subseq Hosp Care Lvl 3 Diagnoses Closed fracture of left patella S82.002A Acute metabolic encephalopathy G93.41 Time Spent (min) 35
[2019-10-07] MEDS ORDERED: HydrALAZINE HCL 20 MG/ML VIAL IV PRN (23:46)
[2019-10-07] MEDS ORDERED: haloperidoL 0.5 MG TAB PO ONE (23:49)
[2019-10-08] MEDS: KETOROLAC TROMETHAMINE 15 MG/ML VIAL IV SCH ×3 (01:01→14:44)
[2019-10-08] MEDS: ACETAMINOPHEN 500 MG TAB PO SCH ×3 (05:43→21:06)
--- NOTE | 2019-10-08 07:46 | Progress Notes ---
DATE: 10/08/2019 SUBJECTIVE: An 84-year-old gentleman postop day 2 from a left knee partial patellectomy and extensor mechanism repair. He had a very restless night and was pretty confused and combative and up most of the night. He is sleeping now. Appears comfortable. OBJECTIVE: VITAL SIGNS: Temperature 36.8. Vital signs stable. GENERAL: Shows an elderly male. He is lying in bed and sleeping pretty soundly. I did not wake him this morning. EXTREMITIES: His leg is well aligned. Dressing is intact. ASSESSMENT: An 84-year-old gentleman postop day 2 from a left knee partial patellectomy and extensor mechanism repair. Pretty confused and combative, which is not too unusual in the hospital. We need to limit and hold all pain medicines until his confusion resolves and then treat him only as needed. I would really stick to Tylenol as much as possible for pain control. PLAN: 1. DVT prophylaxis including thigh-high TEDs, SCDs, and I would recommend a baby aspirin twice a day for the next 4-6 weeks. 2. PT/OT. He can weightbear as tolerated in the knee immobilizer. We want no knee range of motion at this point. 3. Medical management as per the medicine service. 4. Confusion. I would hold all pain medicines until confusion resolves and then I would stick to Tylenol. 5. Disposition. He is orthopedically okay for discharge any time, medically stable. I need to see him back somewhere between 2 and 3 weeks postop. Any orthopedic questions can be directed to me at [phone].
[2019-10-08] MEDS: DOCUSATE SODIUM 100 MG CAP PO SCH ×2 (13:05→20:14)
[2019-10-08] MEDS: ASPIRIN 81 MG ECTAB PO SCH ×2 (13:05→20:14)
[2019-10-08] MEDS: MULTIVITAMIN TAB PO SCH (13:05)
[2019-10-08] MEDS: SENNA 8.6 MG TAB PO SCH (20:15)
--- NOTE | 2019-10-08 22:20 | Hospitalist Progress Note ---
Date of Service October 08, 2019 Assessment & Plan (1) Closed fracture of left patella: Clifford is an 84-year-old male with no past medical history who presents for evaluation of left knee pain with evaluation consistent with a left patellar fracture. L Patellar fracture with 38mm distraction S/P repair. - L Knee XR: There was a transverse fracture through the mid patellar pole with 38 mm of fracture fragment distraction. There is prepatellar soft tissue edema. There is a bone island within the tibia. There are vascular calcifications. No additional fractures are visualized. - L Ankle, foot, tib-fib XR: naf -Neurovascularly intact. PT/DP pulses intact and symmetrical. Sensation to soft touch intact, able to wiggle toes. No pain in left calf. -Orthopedic surgery consulted, case discussed with Dr. Aguilar by emergency provider. will closely monitor patient -will followup with recommendations as per ortho. -Encephalopathy appears better. awaiting discharge and placement. DVT prophylaxis: SCDs on right lower extremity CODE STATUS: Full code, discussed with patient Disposition: Admit to medical/surgical (2) Acute metabolic encephalopathy: Likely secondary to anesthesia. Patient also recieved ativan. will continue to monitor. will receive second dose of seroquel today 25 mg po PM. Admission and Anticipated Discharge Date Admission Date: October 05, 2019 Subjective Patient reports feeling well. He recalls why he is in the hospital. He has no new symptoms. Review of Systems Review of Systems: All systems reviewed & are unremarkable except as noted in HPI & below Physical Exam Physical Exam: General: NAD. HEENT: Atraumatic, normocephalic. Visual campbell full to confrontation. Pulm: CTAB A&P. Cardiac: RRR, -mrg. Radial pulses intact and symmetrical. Abdominal: Nontender, nondistended, soft. BS present. Extremity: Right lower extremity atraumatic, without swelling or pitting edema. Left lower extremity: left knee in brace. neuro: AAO to person, place, and why he is in the hospital. Not oriented to time. Results & Data Results & Data ([facility]) Vital Signs (Past 12 Hours) Vital Signs Temp Pulse Resp BP Pulse Ox 10/08/19 15:05 37.3 C 88 16 134/63 96 PG Care Time/CCT Total # of Minutes Spent Total Time Spent with Patient: Total time spent is greater than 50% in coordination of care (as documented) at patient's floor/unit and/or counseling patient: Coding Level of Care Code 66979 Subseq Hosp Care Lvl 2 Diagnoses Closed fracture of left patella S82.002A Acute metabolic encephalopathy G93.41 Time Spent (min) 25
[2019-10-08] MEDS ORDERED: QUETIAPINE FUMARATE 25 MG TABLET PO ONE (22:21)
[2019-10-09] MEDS: ACETAMINOPHEN 500 MG TAB PO SCH ×2 (05:45→13:34)
[2019-10-09] MEDS: ASPIRIN 81 MG ECTAB PO SCH (08:27)
[2019-10-09] MEDS: DOCUSATE SODIUM 100 MG CAP PO SCH (08:28)
[2019-10-09] MEDS: MULTIVITAMIN TAB PO SCH (08:28)
[2019-10-09 13:52] LABS: Hemoglobin 10.7 g/dL (14.0-18.0); Mean Corpuscular Hemoglobin 29.1 pg (25-34); Mean Corpuscular Hgb Conc 33.4 g/dL (32-36); Mean Platelet Volume 8.9 fL (7.4-10.4); Platelet Count 290 K/uL (130-400); RDW Coefficient of Variation 13.5 % (11.5-14.5); RDW Standard Deviation 43.3 fL (36.4-46.3); Red Blood Count 3.68 M/uL (4.7-6.1)
[2019-10-09 14:20] LABS: BUN Creatinine Ratio 16.8 (10-20); Calcium 8.5 mg/dl (8.5-10.1); Creatinine Clr Calc Pharmacy 41.8 ml/min; Est GFR (African American) 60.5; Est GFR (Non-African American) 52.2; Potassium 3.8 mmol/L (3.5-5.1)
--- NOTE | 2019-10-09 21:51 | Progress Notes ---
DATE: 10/09/2019 SUBJECTIVE: An 84-year-old gentleman postop day 3 from a left knee partial patellectomy and extensor mechanism repair. He is doing much better today. Pain seems to be controlled. He is much more awake, alert and appropriate. He has been no longer combative and back to his normal self. He has got some quad pain in the left, but it is manageable. No new complaints. OBJECTIVE: VITAL SIGNS: Temperature 36.8. Vital signs stable. GENERAL: Shows a pleasant elderly male. He is sitting up in his bedside chair, looks pretty comfortable. EXTREMITIES: Examination of the left leg reveals a knee immobilizer to be in place. He can do a straight leg raise with some effort. He can dorsiflex and plantarflex his foot appropriately. He is neurologically intact. ASSESSMENT: An 84-year-old gentleman postop day 3 from a left knee partial patellectomy and extensor mechanism repair. He seems to be doing much better. The confusion and combativeness seems to be resolved. His pain is controlled. He is neurologically intact. PLAN: 1. DVT prophylaxis including thigh-high TEDs, SCDs, and we would recommend a baby aspirin twice a day for the next 4-6 weeks. 2. PT/OT. He can weightbear as tolerated in the knee immobilizer. We do not want to do any range of motion at this point. 3. Medical management as per the medicine service. 4. Disposition: He is orthopedically okay for discharge any time medically stable. I need to see him back 2-3 weeks out from surgery date. Any orthopedic questions can be directed to me at [phone].
--- NOTE | 2019-10-15 23:31 | Discharge Summary ---
Date of Service October 09, 2019 Admission HPI Per Admitting Provider Clifford is an 84-year-old male with no past medical history who presents for evaluation of left knee pain. Clifford was out walking his 2 dogs when 1 dog ran behind him and the other dog ran in front of him to kanwal a cat causing him to fall and strike his left knee on pavement. After striking his knee the dog is continued to run sideways which causes him to twist his knee sideways. He reports that he felt a crack and immediate sharp pain. He was unable to extend his leg, and noticed that his kneecap was displaced superiomedially and that his lower leg bone was stretched out to the side appearing dislocated. He was able to self reduce his knee and pull his kneecap back into place, but afterwards was unable to extend his leg and noticed that it just "was floppy ". His injury occurred at approximately 430 to 5:00 PM on 10/04/2019. Since his injury he has noticed some cramping and tension in his left thigh. He has not had any numbness or tingling stretching down into his lower leg or ankle. He does not have pain anywhere except his left knee. He reports he has good exercise tolerance and walks his dog regularly, has never had a problem with chest pain/chest pressure/palpitations/leg swelling, greg rtness of breath, difficulty breathing, headache, syncope, presyncope, or sudden weakness He denies any past medical history. He does not see a PCP. Medications: Does not take any medications Surgical history: Distant left hernia repair Allergies: No known drug allergies Family history: Reports a family history of stroke in his oldest son, and his youngest son at age 49 from COPD and heart failure. Social: Denies alcohol use. No tobacco use in 8 years, sporadic use prior to that. Denies recreational drug use. He lives alone with his daughter Rebecca living approximately 10 miles away who would be his contact and decision maker if you are unable to make decisions for himself. CODE STATUS: Full code Principal Diagnosis closed fracture of left patella Discharge Exam General: NAD. HEENT: Atraumatic, normocephalic. Visual campbell full to confrontation. Pulm: CTAB A&P. Cardiac: RRR, -mrg. Radial pulses intact and symmetrical. Abdominal: Nontender, nondistended, soft. BS present. Extremity: Right lower extremity atraumatic, without swelling or pitting edema. Left lower extremity: left knee in brace. neuro: AAO to person, place, and why he is in the hospital. Not oriented to time. Discharge Data Allergies Allergy/AdvReac Type Severity Reaction Status Date / Time No Known Allergies Allergy Unverified 10/05/19 20:41 Consultations 10/05/19 21:15 ED Decision to Admit Stat 10/05/19 22:34 Consult Orthopedic Surgery Routine 10/06/19 18:55 Consult Case Management - Discharge Planning Routine Procedures Performed Operation Date: 10/06/19 14:00 Actual Procedures p Left Patellectomy with Extensor Mechanism Repair(Left) - Kailash Aguilar MD Ordered Studies 10/07/19 02:32 CT head/brain wo con Urgent Hospital Course (1) Closed fracture of left patella: Clifford is an 84-year-old male with no past medical history who presents for evaluation of left knee pain with evaluation consistent with a left patellar fracture. L Patellar fracture with 38mm distraction S/P repair. - L Knee XR: There was a transverse fracture through the mid patellar pole with 38 mm of fracture fragment distraction. There is prepatellar soft tissue edema. There is a bone island within the tibia. There are vascular calcifications. No additional fractures are visualized. - L Ankle, foot, tib-fib XR: naf -Neurovascularly intact. PT/DP pulses intact and symmetrical. Sensation to soft touch intact, able to wiggle toes. No pain in left calf. -Orthopedic surgery consulted, case discussed with Dr. Aguilar by emergency provider. -Encephalopathy improved during hospital stay, likely secondary to anesthesia. Appreciate input from ortho: DVT prophylaxis: recommend a baby aspirin twice a day for the next 4-6 weeks. He can weightbear as tolerated in the knee immobilizer. We do not want to do any range of motion at this point. (2) Acute metabolic encephalopathy: Likely secondary to anesthesia. Patient also recieved ativan. Improved, wrequired 2 doses of seroquel PM. will hold at dicharge.. Total Time Total Time Spent Total Time Spent (In Minutes): 32 Total Time Includes: Examination of the Patient, Discharge Planning and Medication Reconciliation Discharge Plan Discharge Items Patient Disposition: Transfer Inpatient Rehab Fac Reason For Visit: L PATELLAR FRACTURE Discharge Diagnosis: left patellar fracture Condition on Discharge: Good Activity: Per Instructions section Activity Comment: May weightbear as tolerated in Knee Immobilizer at all times. Weightbearing: Full weightbearing Weightbearing Comment: Weightbear as tolerated in knee immobilizer Non-emergency contact: Surgeon Call non-emergency contact if: you have any medication questions Follow-up/Referrals: Kailash Aguilar MD [Physician] - (Orthopedic follow-up 2-3 weeks from surgery date.) PCP,NO [Primary Care Provider] - Diet: Regular Addtl Attending Provider Instructions: Keep dressing clean, dry, and in place until return to clinic Knee immobilizer at all times while walking. May remove brace if sitting or lying and keeping the knee straight. Must wear the knee immobilizer for sleeping. Aspirin 81 mg PO BID for 4-6 weeks post op. Your Blood pressure was elevated, will start low dose of lisinopril and amlodipine. if you develop a cough, stop the lisinopril for losartan or valsartan. Followup with PCP in 1-[address] Aguilar Ortho needs to see him back somewhere between 2 and 3 weeks postop. Any orthopedic questions can be directed to me at [phone]. Pending Studies at Discharge: No Stand-Alone Forms: [employer], Opioid Pain Management, Smoking Cessation Skilled Items Lines: None Urinary Catheter: No Medications and DC Order Prescriptions: New multivitamin [Daily-Humberto] Tablet 1 tab PO QAM Qty: 30 RF: 0 aspirin 81 mg Tablet,Delayed Release (Dr/Ec) 81 mg PO BID Qty: 30 RF: 0 acetaminophen 500 mg Tablet 1,000 mg PO Q8 PRN (Reason: pain) Qty: 30 RF: 0 docusate sodium 100 mg Capsule 100 mg PO BID PRN (Reason: constipation) Qty: 30 RF: 0 amlodipine 2.5 mg tablet 2.5 mg PO QPM Qty: 30 RF: 0 lisinopril 2.5 mg tablet 2.5 mg PO QPM Qty: 30 RF: 0 No Action No Known Home Medications RF: 0 Discharge Orders: Discharge Order (Routine); Ordered 10/09/19 Ordered By: Chevy León Admission Data Admit Date/Time: 10/05/19 21:47 Attending Provider: Chevy León Admit Provider: Aki De La Rosa Primary Care Provider: PCP,NO Other Providers: Kailash Aguilar ; Lauro Watkins ; Aki De La Rosa Other Interventions: Discharge Summary Assessment (RN) Last Done: 10/09/19 14:05 DC Date/Time DO NOT enter until pt leaves facility: 10/09/19 15:53 Coding Level of Care Code D/C Day Management >30 mins Diagnoses Closed fracture of left patella S82.002A Acute metabolic encephalopathy G93.41
== END 2019-10-09 15:53 | DRG 488 ==
LOC: ED 19:01 → SUATTDRO 21:47 → 3E 21:47